=== PATIENT | female | born 1985 | race Hispanic/Latino ===

== ENCOUNTER 2022-01-09 19:24 | Emergency (ER) | payer OTHER ==
[~2022-01-09] VITALS: Ht 165.1 cm; Wt 81.6 kg
[2022-01-09 19:26] VITALS: BP 142/88
[2022-01-10 03:48] LABS: HEPATITIS C ANTIBODY Non-Reactive (Nonreactive)
== END 2022-01-09 21:01 | disposition home or self-care (01) ==
LOC: EDH 19:24
DX: S69.92XA Unspecified injury of left wrist, hand and finger(s), initial encounter (principal); J45.909 Unspecified asthma, uncomplicated; W46.0XXA Contact with hypodermic needle, initial encounter; Y93.89 Activity, other specified; Y92.89 Other specified places as the place of occurrence of the external cause; Y99.8 Other external cause status
CPT/HCPCS: 36415; 86701; 86704; 86706; 87390; 87520

== ENCOUNTER → 2023-06-20 | Outpatient (CLI) | payer OTHER ==
[~2023-06-20] MED LIST: CYCL-309 PO
== END | disposition home or self-care (01) ==
LOC: RAH 14:02
PROVIDERS: ATTEND Internal Medicine
DX: S63.650A Sprain of metacarpophalangeal joint of right index finger, initial encounter (principal); S63.652A Sprain of metacarpophalangeal joint of right middle finger, initial encounter; X58.XXXA Exposure to other specified factors, initial encounter; Y93.89 Activity, other specified; Y92.89 Other specified places as the place of occurrence of the external cause; Y99.8 Other external cause status
CPT/HCPCS: 73130

== ENCOUNTER 2023-07-29 20:02 | Emergency (ER) | payer OTHER ==
[~2023-07-29] VITALS: Ht 160 cm; Wt 88.9 kg
[2023-07-29 20:04] VITALS: BP 136/82; PULSE 83; RESP 16
== END 2023-07-29 21:00 | disposition home or self-care (01) ==
LOC: EDH 20:02
DX: Z77.21 Contact with and (suspected) exposure to potentially hazardous body fluids (principal); J45.909 Unspecified asthma, uncomplicated; Z98.890 Other specified postprocedural states
CPT/HCPCS: 99282

== ENCOUNTER 2023-08-27 17:23 | Emergency (ER) | payer OTHER ==
[~2023-08-27] VITALS: Ht 160 cm; Wt 88.0 kg
[2023-08-27 18:56] VITALS: BP 121/81; PULSE 78; RESP 16; O2SAT 97
== END 2023-08-27 19:07 | disposition home or self-care (01) ==
LOC: EDH 17:23
DX: M76.62 Achilles tendinitis, left leg (principal); J45.909 Unspecified asthma, uncomplicated
CPT/HCPCS: 73630

== ENCOUNTER 2024-03-30 17:59 | Observation (INO) | payer OTHER ==
[~2024-03-30] VITALS: Ht 160 cm; Wt 80.1 kg
--- NOTE | 2024-03-30 18:11 | ERN ---
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 SHE HAS A HISTORY OF ASTHMA STATES IT HAS GOTTEN PROGRESSIVELY WORSE THROUGHOUT THE DAY. SHE HAS USE HER RESCUE INHALER TODAY, HAS NOT HELPED. NO FEVER NO CHILLS CURRENTLY SATURATING 95% BUT IS TACHYPNEIC WITH RESPIRATORY RATE 20 TO 24 MINUTE, HEART RATE 102-104. PATIENT HAVING DYSPNEA WITH ANY EXERTION INCLUDING SPEECH Allergies: Coded Allergies: No Known Drug Allergies (Unverified Allergy, Unknown, 01/09/22) Home Meds Active Scripts Cyclobenzaprine HCl (Cyclobenzaprine HCl) 10 Mg Tablet, 10 MG PO DAILYDINNER, #15 TAB Prov:GLO PINO PAC 03/09/23 Past Medical History Past Medical History: Anxiety, Asthma, Other Additional Past Medical Hx: PCOS SHY SYND, PTSD Surgical History: None Family History: HTN Social History: ETOH, Lives with family History: Not Applicable RN Note Reviewed/Agreed w/PFSH: Yes Review of System Dictation CONSTITUTIONAL: NEGATIVE EXCEPT FOR HPI HEAD/FACE: NEGATIVE EXCEPT FOR HPI EENT: NEGATIVE EXCEPT FOR HPI RESPIRATORY: NEGATIVE EXCEPT FOR HPI SOB/DYSPNEA ON EXERTION/WHEEZING GASTROINTESTINAL/ABDOMINAL: NEGATIVE EXCEPT FOR HPI GENITOURINARY: NEGATIVE EXCEPT FOR HPI MUSCULOSKELETAL: NEGATIVE EXCEPT FOR HPI INTEGUMENTARY: NEGATIVE EXCEPT FOR HPI NEUROLOGICAL/PSYCH: NEGATIVE EXCEPT FOR HPI HEMATOLOGIC/LYMPHATIC: NEGATIVE EXCEPT FOR HPI ALL SYSTEMS NEGATIVE, EXCEPT NOTED ABOVE. 13 POINT REVIEW OF SYSTEMS ASSESSED AND ALL NEGATIVE EXCEPT FOR ABOVE. Initial Vital Sign VS Vital Signs Date Time Temp Pulse Resp B/P (MAP) Pulse Ox O2 Delivery O2 Flow Rate FiO2 03/30/24 18:01 97.9 107 20 136/67 97 Room Air 03/30/24 18:13 2 28 Physical Exam Dictation VITAL SIGNS REVIEWED GENERAL APPEARANCE: ALERT, ORIENTED X 3, MODERATE ACUTE DISTRESS, WELL DEVELOPED, NOURISHED. HEAD AND FACE: NON-TRAUMATIC. EYES: PERRL, PINK CONJUNCTIVAS, EYELID NO TRAUMA, ANTERIOR CHAMBER WITH ARCUS SENILIS. EARS: PINNAS INTACT AND NO SIGNS OF TRAUMA OR ERYTHEMA EAR CANALS CLEAR AND NO DISCHARGE TM NO ERYTHEMA NOSE: NO DISCHARGE, NO BLEEDING. OROPHARYNX: MOUTH NORMAL, TONGUE PINK, PHARYNX CLEAR,NO ERYTHEMA, TONSILS NO EXUDATES, NO ABSCESSES NOTED, MUCOUS MEMBRANE MOIST NECK: SUPPLE, NON-TENDER, NO THYROMEGALY, NO MASSES, NO JVD, NO BRUITS BREAST:DEFERRED CHEST:NO TENDERNESS, NO CREPITUS, NO PARADOXICAL MOVEMENT, NO RETRACTIONS LUNGS:CLEAR, WELL-VENTILATED, BILATERAL BREATH SOUNDS CLEAR TO AUSCULTATION DIMINISHED IN BASES BILATERALLY TACHYPNEIC HEART: REGULAR RATE, REGULAR RHYTHM, NO MURMUR, NO GALLOPS VASCULAR: NO PERIPHERAL EDEMA, ABDOMEN: SOFT, POSITIVE BOWEL SOUNDS, NONDISTENDED, NO GUARDING, NONTENDER, NO REBOUND, NO MASSES NO HEPATOMEGALY, NO SPLENOMEGALY, NO DODD'S SIGN, NO HERNIAS. RECTAL: DEFERRED GENITAL: DEFERRED NEUROLOGICAL: NORMAL SPEECH, MOTOR FUNCTION INTACT, SENSORY FUNCTION INTACT MUSCULOSKELETAL: NECK NONTENDER, FULL RANGE OF MOTION, BACK NONTENDER, FULL RANGE OF MOTION, EXTREMITIES: NONTENDER, FULL RANGE OF MOTION SKIN: COLOR PINK, DRY, NO TURGOR, NO RASH, NO LACERATIONS, NO ABRASIONS, NO CONTUSIONS. LYMPHATIC: DEFERRED Results (Laboratory/Radiology) Laboratory/Radiology Laboratory Tests Test 03/30/24 18:11 03/30/24 18:43 White Blood Count 11.2 K/uL (4.8-10.8) H Red Blood Count 4.67 MIL/uL (4.00-5.50) Hemoglobin 14.2 g/dL (12.0-16.0) Hematocrit 41.0 % (36-48) Mean Corpuscular Volume 87.8 fL (79-99) Mean Corpuscular Hemoglobin 30.4 pg (27.0-33.0) Mean Corpuscular Hemoglobin Concent 34.6 g/dL (32.0-36.0) Red Cell Distribution Width 12.2 % (11.0-15.5) Platelet Count 301 K/uL (130-400) Mean Platelet Volume 10.6 fL (7.5-10.5) H Immature Granulocyte % (Auto) 0.2 % (0-1) Neutrophils (%) (Auto) 66.0 % (40.0-77.0) Lymphocytes (%) (Auto) 28.1 % (21.0-51.0) Monocytes (%) (Auto) 5.0 % (3.0-13.0) Eosinophils (%) (Auto) 0.5 % (0.0-8.0) Basophils (%) (Auto) 0.2 % (0.0-5.0) Neutrophils # (Auto) 7.4 K/uL (1.8-7.7) Lymphocytes # (Auto) 3.2 K/uL (1.0-4.8) Monocytes # (Auto) 0.6 K/uL (0.1-1.0) Eosinophils # (Auto) 0.06 K/uL (0.00-0.70) Basophils # (Auto) 0.02 K/uL (0.00-0.20) Absolute Immature Granulocyte (auto 0.02 K/uL (0-1) Nucleated Red Blood Cells 0.0 % (0.0-0.19) Sodium Level 140 mmol/L (136-145) Potassium Level 3.0 mmol/L (3.5-5.1) *L Chloride Level 103 mmol/L (101-111) Carbon Dioxide Level 21 mmol/L (21-32) Blood Urea Nitrogen 14 mg/dL (7-18) Creatinine 1.2 mg/dL (0.5-1.0) H Glomerular Filtration Rate Calc 59 mL/min (>90) Random Glucose 139 mg/dL (70-105) H Lactic Acid Level 4.1 mmol/L (0.8-2.5) H Total Calcium 9.6 mg/dL (8.5-10.1) SARS-CoV-2 Antigen (Rapid) PRESUMPTIVE NEGATIVE Labs Reviewed?: Yes ED Course ED Course Orders Procedure Category Date Status Time Blood Cult [id number] 03/30/24 In Process 18:06 Lactic Acid LAB 03/30/24 Complete 18:06 Cbc With Differential LAB 03/30/24 Complete 18:06 Chest 1vw RAD 03/30/24 Taken 18:06 Basic Metabolic Panel LAB 03/30/24 Complete 18:06 Methylprednisolone PHA 03/30/24 Complete Succ 125mg (Solu-Medr 18:30 Albuterol 0.083% PHA 03/30/24 Complete 2.5mg/3ml (Proventil 18:30 Budesonide 0.5 Mg/2 PHA 03/30/24 Complete Ml Inh (Pulmicort 0. 18:06 Oxygen By Nc/Pulse Ox CPOE 03/30/24 Transmitted 18:06 Azithromycin 500mg+Ns PHA 03/30/24 Complete 250ml (Azithromyci 18:11 Urinalysis Profile LAB 03/30/24 Logged 18:27 0.9%Nacl 1000ml (Ns PHA 03/30/24 In Process 1000ml) 18:30 Ceftriaxone 2gm Vial PHA 03/30/24 Complete (Rocephin 2gm Inj) 18:30 Covid19 (Sars Antigen LAB 03/30/24 Complete Rapid) 18:31 Potassium Bicarb/Cit PHA 03/30/24 Complete Ac 25meq (K-Lyte Ta 19:00 Current Medications Medications (Trade) Dose Ordered Sig/Yanet Route PRN Reason Start Time Stop Time Status Last Admin Dose Admin Albuterol Sulfate (Proventil 0.083% 2.5mg/3ml) 5 mg ONCE ONCE IH 03/30/24 18:30 03/30/24 18:31 DC 03/30/24 18:51 Azithromycin 250 ml @ 250 mls/hr ONCE STAT IVPB 03/30/24 18:11 03/30/24 19:10 DC 03/30/24 18:37 Budesonide (Pulmicort 0.5 Mg/2ml) 1 mg ONCE STAT IH 03/30/24 18:06 03/30/24 18:10 DC 03/30/24 19:03 Ceftriaxone Sodium (Rocephin 2gm Inj) 2 gm ONCE ONCE IVPB 03/30/24 18:30 03/30/24 18:33 DC 03/30/24 18:37 Methylprednisolone Sodium Succinate (Solu-medROL 125MG) 125 mg ONCE ONCE IVP 03/30/24 18:30 03/30/24 18:31 DC 03/30/24 18:12 Potassium Bicarbonate (K-Lyte Tablet Eff 25 Meq Tablet.eff) 25 meq ONCE ONCE PO 03/30/24 19:00 03/30/24 19:01 DC 03/30/24 19:11 Sodium Chloride 2,448 ml @ 816 mls/hr ONCE ONCE IV 03/30/24 18:30 03/30/24 21:29 03/30/24 18:36 Vital Signs Date Time Temp Pulse Resp B/P (MAP) Pulse Ox O2 Delivery O2 Flow Rate FiO2 03/30/24 19:03 107 20 03/30/24 18:51 101 22 03/30/24 18:13 98.8 98 22 136/74 96 Nasal Cannula* 2 28 03/30/24 18:01 97.9 107 20 136/67 97 Room Air 1828/LACTIC ACID 4.1. PATIENT WILL BE GIVEN 30 PER KILOS FLUIDS AND ROCEPHIN2 G IN ADDITION TO HER AZITHROMYCIN. ANTICIPATE ADMISSION TO THE HOSPITAL SHE WILL BE MONITORED FOR HEMODYNAMIC STABILITY AND IMPROVEMENT OF HER O2 SATS AND IMPROVEMENT OF BREATHING. 1900/CHEST X-RAY PENDING. PATIENT REMAINS TACHYPNEIC 18-22 A MINUTE. SATURATIONS 96 97% ON2 L NASAL CANNULA. SHE REMAINS HEMODYNAMICALLY STABLE, POTASSIUM IS ALSO 3.0. POTASSIUM WAS REPLACED AND PATIENT WILL BE ADMITTED TO [facility] SHE AGREES TO ADMISSION.1930/ SPOKE WITH DR. HARVEY REVIEWED CHEST X-RAY LABS AND INTERVENTIONS FOR SEPSIS TO INCLUDE FLUIDS, ROCEPHIN AND AZITHROMYCIN AND RESPIRATORY TREATMENTS. HE AGREED TO ADMIT PATIENT Medical Decision Making MDM MDM: DIFFERENTIAL DIAGNOSIS: ASTHMA FLARE/PNEUMONIA/BRONCHITIS/VIRAL URI/SEPSIS RATIONALE: TESTS CONSIDERED AND ORDERED SECONDARY TO SHARED DECISION MAKING INCLUDE: LABS, AND RADIOLOGY PREVIOUS OUTSIDE RECORDS REVIEWED: OLD ER VISITS. RISK OF COMPLICATION AND/OR MORBIDITY OR MORTALITY OF PATIENT MANAGEMENT: MILD -TO-MODERATE MEDICATIONS-PER MEDICATION RECONCILIATION NEED FOR HOSPITALIZATION: PATIENT DOES MEET CRITERIA FOR HOSPITALIZATION. PATIENT WILL NEED ADMISSION FOR CONTINUED FLUID RESUSCITATION/PULMONARY SUPPORT AND ELECTROLYTE STABILIZATION MONITORING OF HER LACTIC ACID NEED FOR EMERGENCY MAJOR/MINOR SURGERY: NO THERE ARE NO SOCIAL CONCERNS WITH THIS PATIENT. PRESCRIPTION DRUG MANAGEMENT PRESCRIPTIONS WILL INCLUDE SYMPTOMATIC CARE PATIENT'S PRIOR EXTERNAL MEDICAL RECORDS FROM OTHER ER VISITS WERE REVIEWED BY ME INDICATED. PRIOR TESTING AND RESULTS FROM PREVIOUS VISITS WERE REVIEWED. PRIOR TESTS WERE TAKEN INTO ACCOUNT WITH MEDICAL DECISION MAKING AND RESOURCE UTILIZATION, INDEPENDENT HISTORIAN/HISTORIANS WERE USED TO OBTAIN COMPLETE MEDICAL HISTORY. I INDEPENDENTLY INTERPRETED THE TEST THAT WERE PERFORMED, RESULTS WERE REVIEWED BY ME AND CONSIDERED FINDINGS ON RADIOLOGY IF ORDERED. MEDICAL MANAGEMENT AND EXAMINATION INTERPRETATION DISCUSSIONS WERE HAD BY ME WITH OTHER QUALIFIED HEALTHCARE PROFESSIONALS INDICATED FOR THE PATIENT'S CARE. DX & DISP Disposition: Inpatient Decision to Admit Time: 19:02 Departure Impression: Primary Impression: Acute asthma flare Additional Impressions: Dyspnea on minimal exertion, Hypokalemia, Dehydration, Sepsis Condition: Stable Referrals: MICHAEL LAGUNA MD (PCP) Time of Disposition: 19:02 I have reviewed the case, and I agree with, Diagnosis and Plan LIZ AMATO NP Mar 30, 2024 18:11
[2024-03-30] MEDS: Solu-medROL 125MG VIAL IVP ONE (18:12)
[2024-03-30 18:23] LABS: BASOPHILS # (AUTO) 0.02 K/uL (0.00-0.20); BASOPHILS % (AUTO) 0.2 % (0.0-5.0); EOSINOPHILS # (AUTO) 0.06 K/uL (0.00-0.70); EOSINOPHILS % (AUTO) 0.5 % (0.0-8.0); IMMATURE GRANULOCYTE ABSOLUTE 0.02 K/uL (0-1); LYMPHOCYTES # (AUTO) 3.2 K/uL (1.0-4.8); LYMPHOCYTES % (AUTO) 28.1 % (21.0-51.0); MEAN CORPUSCULAR HEMOGLOBIN 30.4 pg (27.0-33.0); MEAN CORPUSCULAR HGB CONC 34.6 g/dL (32.0-36.0); MEAN CORPUSCULAR VOLUME 87.8 fL (79-99); MONOCYTES # (AUTO) 0.6 K/uL (0.1-1.0); NEUTROPHILS # (AUTO) 7.4 K/uL (1.8-7.7); PLATELET COUNT (AUTO) 301 K/uL (130-400); RED BLOOD CELL COUNT(AUTO) 4.67 MIL/uL (4.00-5.50); RED CELL DISTRIBUTION WIDTH 12.2 % (11.0-15.5); WHITE BLOOD COUNT (AUTO) 11.2 K/uL (4.8-10.8)
[2024-03-30] MEDS: 0.9%NACL 1000ML 2,448 ML IV ONE (18:36)
[2024-03-30] MEDS: CEFTRIAXONE 2GM VIAL IVPB ONE (18:37)
[2024-03-30] MEDS: AZITHROMYCIN 500MG+NS 250ML 250 ML IVPB STA (18:37)
[2024-03-30 18:39] LABS: CREATININE 1.2 mg/dL (0.5-1.0)
[2024-03-30 18:51] VITALS: PULSE 101; RESP 22
[2024-03-30] MEDS: ALBUTEROL 0.083% 2.5 MG/3 ML INH IH ONE (18:51)
[2024-03-30 19:03] VITALS: PULSE 107; RESP 20
[2024-03-30] MEDS: BUDESONIDE 0.5 MG/2 ML INH IH STA (19:03)
[2024-03-30] MEDS: PoTASSium BIcarbonate/CIT AC 25 MEQ TABLET.EFF PO ONE (19:11)
[2024-03-30] MEDS: Solu-medROL 40MG VIAL IVP SCH (19:30)
[2024-03-30] MEDS: AZITHROMYCIN 500MG+NS 250ML 250 ML IVPB SCH (19:30)
[2024-03-30] MEDS: cefTRIAXone 1G VIAL IVPB SCH (19:30)
[2024-03-30 19:49] LABS: APPEARANCE,URINE CLEAR (CLEAR); BILIRUBIN,URINE NEGATIVE (NEGATIVE); COLOR,URINE LIGHT-YELLOW (YELLOW); GLUCOSE, URINE (UA) NEGATIVE (NEGATIVE); KETONES,URINE NEGATIVE (NEGATIVE); LEUKOCYTE ESTERASE ,URINE NEGATIVE Leu/uL (NEGATIVE); NITRATE,URINE NEGATIVE (NEGATIVE); OCCULT BLOOD,URINE NEGATIVE (NEGATIVE); PROTEIN,URINE NEGATIVE (NEGATIVE); UROBILINOGEN,URINE 0.2 mg/dL (0.2-1.0)
[2024-03-30 19:57] LABS: ADD UA MICROSCOPIC NO
--- NOTE | 2024-03-30 20:29 | HMCIMG ---
CHEST 1VW CLINICAL HISTORY: SOB/HISTORY OF ASTHMA COMPARISON: None TECHNIQUE: Single view of the chest was obtained. FINDINGS: Lungs are clear. The cardiac size and mediastinum are unremarkable. The bony structures are within normal limits. IMPRESSION: No acute cardiopulmonary process identified.
--- NOTE | 2024-03-30 21:10 | NUR ---
ASSUMED PATIENT CARE AT THIS TIME FROM HEATHER DIAS./BRIDGET
[2024-03-30 23:00] VITALS: BP 119/69; PULSE 101; RESP 23; TEMP 98.1
[2024-03-30] MEDS ORDERED: SEMA2PEN SQ (23:25)
[2024-03-30] MEDS ORDERED: MONT-39 PO (23:25)
[2024-03-30] MEDS ORDERED: ESCI-8 PO (23:25)
[2024-03-30] MEDS ORDERED: CETI10CA5 PO (23:25)
[2024-03-30] MEDS ORDERED: FLUT1BLS3 PO (23:25)
[2024-03-30] MEDS ORDERED: IPRA3AMP24 NEB (23:25)
[2024-03-31] VITALS (7 sets, daily range): BP systolic 100–135; BP diastolic 49–72; PULSE 90–102; RESP 18–20; TEMP 97.8–98.1; O2SAT 95–97
[2024-03-31] MEDS: IpraTROPium/alBUTERol SULFATE 3 ML SOLUTION IH SCH (00:02)
[2024-03-31 06:14] LABS: HEMATOCRIT 39.9 % (36-48); IMMATURE GRANULOCYTE ABSOLUTE 0.04 K/uL (0-1); LYMPHOCYTES # (AUTO) 0.7 K/uL (1.0-4.8); LYMPHOCYTES % (AUTO) 7.5 % (21.0-51.0); MEAN CORPUSCULAR HEMOGLOBIN 30.3 pg (27.0-33.0); MEAN CORPUSCULAR HGB CONC 33.3 g/dL (32.0-36.0); MEAN CORPUSCULAR VOLUME 90.9 fL (79-99); MONOCYTES # (AUTO) 0.1 K/uL (0.1-1.0); MONOCYTES % (AUTO) 0.6 % (3.0-13.0); NEUTROPHILS # (AUTO) 8.1 K/uL (1.8-7.7); NEUTROPHILS % (AUTO) 91.4 % (40.0-77.0); PLATELET COUNT (AUTO) 283 K/uL (130-400); RED BLOOD CELL COUNT(AUTO) 4.39 MIL/uL (4.00-5.50); RED CELL DISTRIBUTION WIDTH 12.3 % (11.0-15.5); WHITE BLOOD COUNT (AUTO) 8.8 K/uL (4.8-10.8)
[2024-03-31 06:34] LABS: ALBUMIN 3.5 g/dL (3.5-5.0); BILIRUBIN,TOTAL 0.2 mg/dL (0.2-1.0); CREATININE 0.9 mg/dL (0.5-1.0); POTASSIUM 4.7 mmol/L (3.5-5.1); TOTAL PROTEIN, SERUM 7.2 g/dL (6.0-8.3)
--- NOTE | 2024-03-31 06:59 | HP ---
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 SHE HAS A HISTORY OF ASTHMA STATES IT HAS GOTTEN PROGRESSIVELY WORSE THROUGHOUT THE DAY. SHE HAS USE HER RESCUE INHALER TODAY, HAS NOT HELPED. NO FEVER NO CHILLS CURRENTLY SATURATING 95% BUT IS TACHYPNEIC WITH RESPIRATORY RATE 20 TO 24 MINUTE, HEART RATE 102-104. PATIENT HAVING DYSPNEA WITH ANY EXERTION INCLUDING SPEECH Allergies: Coded Allergies: No Known Drug Allergies (Unverified Allergy, Unknown, 01/09/22) Home Meds Active Scripts Cyclobenzaprine HCl (Cyclobenzaprine HCl) 10 Mg Tablet, 10 MG PO DAILYDINNER, #15 TAB Prov:GLO PINO PAC 03/09/23 Past Medical History Past Medical History: Anxiety, Asthma, Other Additional Past Medical Hx: PCOS SHY SYND, PTSD Surgical History: None Family History: HTN Social History: ETOH, Lives with family History: Not Applicable RN Note Reviewed/Agreed w/PFSH: Yes Review of System Dictation CONSTITUTIONAL: NEGATIVE EXCEPT FOR HPI HEAD/FACE: NEGATIVE EXCEPT FOR HPI EENT: NEGATIVE EXCEPT FOR HPI RESPIRATORY: NEGATIVE EXCEPT FOR HPI SOB/DYSPNEA ON EXERTION/WHEEZING GASTROINTESTINAL/ABDOMINAL: NEGATIVE EXCEPT FOR HPI GENITOURINARY: NEGATIVE EXCEPT FOR HPI MUSCULOSKELETAL: NEGATIVE EXCEPT FOR HPI INTEGUMENTARY: NEGATIVE EXCEPT FOR HPI NEUROLOGICAL/PSYCH: NEGATIVE EXCEPT FOR HPI HEMATOLOGIC/LYMPHATIC: NEGATIVE EXCEPT FOR HPI ALL SYSTEMS NEGATIVE, EXCEPT NOTED ABOVE. 13 POINT REVIEW OF SYSTEMS ASSESSED AND ALL NEGATIVE EXCEPT FOR ABOVE. ALLERGIES: Coded Allergies: No Known Drug Allergies (Unverified Allergy, Unknown, 01/09/22) HOME MEDS: Active Scripts Cyclobenzaprine HCl (Cyclobenzaprine HCl) 10 Mg Tablet, 10 MG PO DAILYDINNER, #15 TAB Prov:GLO PINO 03/09/23 Reported Medications Semaglutide (Ozempic) 2 Mg/0.75 Ml (8 Mg/3 Ml) Pen.injctr, 2 MG SQ QWEEK for 30 Days, #3 ML 0 Refills 03/30/24 Cetirizine HCl (Zyrtec) 10 Mg Capsule, 1 CAP PO HS for allergy symptoms for 30 Days, #30 CAP 0 Refills 03/30/24 Fluticasone/Umeclidin/Vilanter (Trelegy Ellipta 100-62.5-25) 100-62.5 Blst.w.dev, 1 PUFF PO DAILY 03/30/24 Ipratropium/Albuterol Sulfate (Iprat-Albut 0.5-3(2.5) mg/3 ml) 0.5 Mg-3 Mg (2.5 Mg Base)/3 Ml Ampul.neb, 1 VIAL NEB BID PRN for SHORTNESS OF BREATH 03/30/24 Escitalopram Oxalate (Escitalopram Oxalate) 10 Mg Tablet, 1 TAB PO HS 03/30/24 Montelukast Sodium (Montelukast Sodium) 10 Mg Tablet, 1 TAB PO DAILY 03/30/24 INPATIENT MEDS: Current Medications Medications Dose Ordered Sig/Yanet Start Time Stop Time Status Last Admin Methylprednisolone Sodium Succinate 40 mg Q8H 03/30/24 19:30 04/29/24 19:29 03/31/24 02:51 Albuterol 1 UDVIAL [id number] 03/31/24 00:00 04/30/24 00:00 03/31/24 00:02 Ceftriaxone Sodium 1 gm Q24H 03/30/24 19:30 04/09/24 19:29 Azithromycin 250 ml @ 250 mls/hr Q24H 03/30/24 19:30 04/09/24 19:29 Enoxaparin Sodium 40 mg DAILY 03/31/24 09:00 04/30/24 08:59 VITAL SIGNS Vital Signs Date Time Temp Pulse Resp B/P (MAP) Pulse Ox O2 Delivery O2 Flow Rate FiO2 03/31/24 03:09 98.1 102 18 100/49 98 Room Air 03/31/24 00:02 99 20 03/31/24 00:02 99 20 N/A Room Air 0.0 21 03/31/24 00:00 97 Room Air* 0 21 03/30/24 23:00 98.1 101 23 119/69 97 Room Air 03/30/24 22:04 99.0 97 19 105/62 97 Room Air* 0 21 03/30/24 19:30 102 20 121/66 94 Nasal Cannula* 2 28 03/30/24 19:03 107 20 03/30/24 18:51 101 22 03/30/24 18:13 98.8 98 22 136/74 96 Nasal Cannula* 2 28 03/30/24 18:01 97.9 107 20 136/67 97 Room Air PHYSICAL EXAM Initial Vital Sign VS Vital Signs Date Time Temp Pulse Resp B/P (MAP) Pulse Ox O2 Delivery O2 Flow Rate FiO2 03/30/24 18:01 97.9 107 20 136/67 97 Room Air 03/30/24 18:13 2 28 Physical Exam Dictation VITAL SIGNS REVIEWED GENERAL APPEARANCE: ALERT, ORIENTED X 3, MODERATE ACUTE DISTRESS, WELL DEVELOPED, NOURISHED. HEAD AND FACE: NON-TRAUMATIC. EYES: PERRL, PINK CONJUNCTIVAS, EYELID NO TRAUMA, ANTERIOR CHAMBER WITH ARCUS SENILIS. EARS: PINNAS INTACT AND NO SIGNS OF TRAUMA OR ERYTHEMA EAR CANALS CLEAR AND NO DISCHARGE TM NO ERYTHEMA NOSE: NO DISCHARGE, NO BLEEDING. OROPHARYNX: MOUTH NORMAL, TONGUE PINK, PHARYNX CLEAR,NO ERYTHEMA, TONSILS NO EXUDATES, NO ABSCESSES NOTED, MUCOUS MEMBRANE MOIST NECK: SUPPLE, NON-TENDER, NO THYROMEGALY, NO MASSES, NO JVD, NO BRUITS BREAST:DEFERRED CHEST:NO TENDERNESS, NO CREPITUS, NO PARADOXICAL MOVEMENT, NO RETRACTIONS LUNGS:CLEAR, WELL-VENTILATED, BILATERAL BREATH SOUNDS CLEAR TO AUSCULTATION DIMINISHED IN BASES BILATERALLY TACHYPNEIC HEART: REGULAR RATE, REGULAR RHYTHM, NO MURMUR, NO GALLOPS VASCULAR: NO PERIPHERAL EDEMA, ABDOMEN: SOFT, POSITIVE BOWEL SOUNDS, NONDISTENDED, NO GUARDING, NONTENDER, NO REBOUND, NO MASSES NO HEPATOMEGALY, NO SPLENOMEGALY, NO DODD'S SIGN, NO HERNIAS. RECTAL: DEFERRED GENITAL: DEFERRED NEUROLOGICAL: NORMAL SPEECH, MOTOR FUNCTION INTACT, SENSORY FUNCTION INTACT MUSCULOSKELETAL: NECK NONTENDER, FULL RANGE OF MOTION, BACK NONTENDER, FULL RA NGE OF MOTION, EXTREMITIES: NONTENDER, FULL RANGE OF MOTION SKIN: COLOR PINK, DRY, NO TURGOR, NO RASH, NO LACERATIONS, NO ABRASIONS, NO CONTUSIONS. LYMPHATIC: DEFERRED LABORATORY RESULTS Laboratory Tests 03/30/24 18:11: White Blood Count 11.2, Red Blood Count 4.67, Hemoglobin 14.2, Hematocrit 41.0, Mean Corpuscular Volume 87.8, Mean Corpuscular Hemoglobin 30.4, Mean Corpuscular Hemoglobin Concent 34.6, Red Cell Distribution Width 12.2, Platelet Count 301, Mean Platelet Volume 10.6, Immature Granulocyte % (Auto) 0.2, Neutrophils (%) (Auto) 66.0, Lymphocytes (%) (Auto) 28.1, Monocytes (%) (Auto) 5.0, Eosinophils (%) (Auto) 0.5, Basophils (%) (Auto) 0.2, Neutrophils # (Auto) 7.4, Lymphocytes # (Auto) 3.2, Monocytes # (Auto) 0.6, Eosinophils # (Auto) 0.06, Basophils # (Auto) 0.02, Absolute Immature Granulocyte (auto 0.02, Nucleated Red Blood Cells 0.0, Sodium Level 140, Potassium Level 3.0, Chloride Level 103, Carbon Dioxide Level 21, Blood Urea Nitrogen 14, Creatinine 1.2, Glomerular Filtration Rate Calc 59, Random Glucose 139, Lactic Acid Level 4.1, Total Calcium 9.6 03/30/24 18:43: SARS-CoV-2 Antigen (Rapid) PRESUMPTIVE NEGATIVE 03/30/24 19:23: Urine Color LIGHT-YELLOW, Urine Appearance CLEAR, Urine pH 7.0, Urine Specific [place] 1.005, Urine Protein NEGATIVE, Urine Glucose (UA) NEGATIVE, Urine Ketones NEGATIVE, Urine Occult Blood NEGATIVE, Urine Nitrate NEGATIVE, Urine Bilirubin NEGATIVE, Urine Urobilinogen 0.2, Urine Leukocyte Esterase NEGATIVE 03/30/24 21:48: Lactic Acid Level 3.5 03/31/24 05:49: White Blood Count 8.8, Red Blood Count 4.39, Hemoglobin 13.3, Hematocrit 39.9, Mean Corpuscular Volume 90.9, Mean Corpuscular Hemoglobin 30.3, Mean Corpuscular Hemoglobin Concent 33.3, Red Cell Distribution Width 12.3, Platelet Count 283, Mean Platelet Volume 10.6, Immature Granulocyte % (Auto) 0.5, Neutrophils (%) (Auto) 91.4, Lymphocytes (%) (Auto) 7.5, Monocytes (%) (Auto) 0.6, Eosinophils (%) (Auto) 0.0, Basophils (%) (Auto) 0.0, Neutrophils # (Auto) 8.1, Lymphocytes # (Auto) 0.7, Monocytes # (Auto) 0.1, Eosinophils # (Auto) 0.00, Basophils # (Auto) 0.00, Absolute Immature Granulocyte (auto 0.04, Nucleated Red Blood Cells 0.0, Sodium Level 140, Potassium Level 4.7, Chloride Level 108, Carbon Dioxide Level 22, Blood Urea Nitrogen 11, Creatinine 0.9, Glomerular Filtration Rate Calc 83, Random Glucose 163, Total Calcium 9.1, Total Bilirubin 0.2, Aspartate Amino Transf (AST/SGOT) 16, Alanine Aminotransferase (ALT/SGPT) 28, Alkaline Phosphatase 65, Total Protein 7.2, Albumin 3.5 PROBLEM LIST: (1) Acute asthma flare ICD Codes: J45.901 - Unspecified asthma with (acute) exacerbation (2) Dyspnea on minimal exertion ICD Codes: R06.09 - Other forms of dyspnea PLAN steroids, nebs and f/u RAFIQ HARVEY MD Mar 31, 2024 06:58
[2024-03-31 07:15] LABS: B-TYPE NATRIURETIC PEPTIDE 45 pg/mL (0-100)
[2024-03-31] MEDS: ENOXAPARIN SODIUM 40 MG/0.4 ML SYRINGE SQ SCH (09:00)
--- NOTE | 2024-03-31 11:45 | NUR ---
DC NOTE DC INSTRUCTIONS AND FOLLOW UP APPOINTMENTS WITH PRINTED PRESCRIPTIONS GIVEN TO PT, VERBALIZED UNDERSTANDING. PIV REMOVED, CATHETER INTACT, DENIES ANY PAIN OR DISCOMFORT. PT IS WALKED DOWNSTAIRS BY PRIMARY NURSE, REFUSED WHEELCHAIR, NO FURTHER COMMENT OR CONCERNS AT THIS TIME.
--- NOTE | 2024-03-31 15:25 | DS ---
Discharge Summary DIAGNOSE(S): [Asthma exacerbation] HOSPITAL COURSE SUMMARY: [Patient did well with steroids discharged on tapered steroids as an outpatient] BUILDING RENTAL SUPERINTENDENT(S): [] PROCEDURE(S)/TREATMENT(S): [] PROBLEM(S): [] FOLLOW-UP TEST(S): [Follow with primary physician] DISCHARGE INSTRUCTIONS: [Follow up with Dr. Guzman in 1-2 days] Home Meds Active Scripts Cyclobenzaprine HCl (Cyclobenzaprine HCl) 10 Mg Tablet, 10 MG PO DAILYDINNER, #15 TAB Prov:GLO PINO PAC 03/09/23 Reported Medications Semaglutide (Ozempic) 2 Mg/0.75 Ml (8 Mg/3 Ml) Pen.injctr, 2 MG SQ QWEEK for 30 Days, #3 ML 0 Refills 03/30/24 Cetirizine HCl (Zyrtec) 10 Mg Capsule, 1 CAP PO HS for allergy symptoms for 30 Days, #30 CAP 0 Refills 03/30/24 Fluticasone/Umeclidin/Vilanter (Trelegy Ellipta 100-62.5-25) 100-62.5 Blst.w.dev, 1 PUFF PO DAILY 03/30/24 Ipratropium/Albuterol Sulfate (Iprat-Albut 0.5-3(2.5) mg/3 ml) 0.5 Mg-3 Mg (2.5 Mg Base)/3 Ml Ampul.neb, 1 VIAL NEB BID PRN for SHORTNESS OF BREATH 03/30/24 Escitalopram Oxalate (Escitalopram Oxalate) 10 Mg Tablet, 1 TAB PO HS 03/30/24 Montelukast Sodium (Montelukast Sodium) 10 Mg Tablet, 1 TAB PO DAILY 03/30/24 RAFIQ HARVEY MD Mar 31, 2024 15:25
== END 2024-03-31 11:45 | disposition home or self-care (01) ==
LOC: EDH 17:59 → EDHIP 19:29 → 3AH 22:37
PROVIDERS: ADMIT Internal Medicine; ATTEND Internal Medicine
DX: A41.9 Sepsis, unspecified organism (principal); Z20.822 Contact with and (suspected) exposure to COVID-19; J45.901 Unspecified asthma with (acute) exacerbation; R06.09 Other forms of dyspnea; E87.6 Hypokalemia; E86.0 Dehydration; F41.9 Anxiety disorder, unspecified; F43.10 Post-traumatic stress disorder, unspecified; Z98.890 Other specified postprocedural states; Z79.899 Other long term (current) drug therapy
CPT/HCPCS: 96365; 96366; 96375; 96368; 99284; 80048; 85025 ×2; 87040 ×2; 83605 ×2; 87426; 81003; 36415 ×2; 71045; 96376; 80053; 83880; 94640; G0378 ×16; J7030; J2919 ×3; J0696; J0456; 94664